=== PATIENT | female | born 1975 | race Caucasian/White ===

== ENCOUNTER 2017-01-12 18:15 | Emergency (ER) | payer MEDICAID ==
[~2017-01-12] VITALS: Ht 157.5 cm; Wt 62.0 kg
[2017-01-12 18:26] VITALS: Ht 157.5 cm; Wt 62.0 kg
[2017-01-12] MEDS ORDERED: KETOROLAC 60 MG INJ IM STA (20:29)
[2017-01-12] MEDS ORDERED: DIAZEPAM 5 MG TAB PO STA (20:29)
--- NOTE | 2017-01-12 21:40 | RADRPT ---
PROCEDURE: XR Left Shoulder CLINICAL INDICATION: Pain TECHNIQUE: AP internal and external rotation views and a Y-view were submitted. COMPARISON: None FINDINGS: Osseous structures: appear well mineralized and intact with no fracture or destructive process iden tified. Joint spaces: The glenohumeral joint appears unremarkable. The left AC joint appears unremarkable. Soft tissues: appear unremarkable. IMPRESSION: Unremarkable left shoulder. Physician Clyde Date Time Electronically viewed and signed by Eleno Rangel Physician on 01/12/2017 21:40 /
--- NOTE | 2017-01-12 21:41 | RADRPT ---
PROCEDURE: XR Cervical Spine. CLINICAL INDICATION: Neck pain TECHNIQUE: Three views of the cervical spine were performed. The images were reviewed on a PACS [employer]. COMPARISON: None. FINDINGS: There is straightening of the normal cervical lordosis. There is no acute fracture or dislocation. The vertebral body heights and disc spaces are preserved. The prevertebral soft tissues are normal. IMPRESSION: 1. No acute fracture or traumatic subluxation. 2. Straightening of the normal cervical lordosis. RPTAT: HFN .Gila Kumar MD, Date Time Electronically viewed and signed by .Gila Kumar MD, MD on 01/12/2017 21:41 .N/
[2017-01-12] MEDS ORDERED: CYCL-319 PO (21:44)
[2017-01-12] MEDS ORDERED: NAPR-260 PO (21:44)
[2017-01-12 22:05] VITALS: BP 127/73; PULSE 75; RESP 18
--- NOTE | 2017-01-12 22:07 | ERD ---
ER Documentation Chief Complaint Date/Time DATE: 01/12/17 TIME: 22:05 Chief Complaint pt bib self with c/o shoulder and neck pain since Monday HPI This is a 41-year-old female presenting to the emergency department complaining of posterior neck pain that radiates down her left shoulder since Monday. Patient states that it is achy, rates it moderate to severe. She admits to having restricted range of motion. She denies any chest pain or shortness of breath. She denies any trauma. She states that she has not taken any medications ROS All systems reviewed and are negative except as per history of present illness. Medications Home Meds Active Scripts Cyclobenzaprine Hcl* (Cyclobenzaprine Hcl*) 10 Mg Tablet, 10 MG PO TID, #30 TAB Prov:PAUL LIU PA-C 01/12/17 Naproxen* (Naprosyn*) 500 Mg Tablet, 500 MG PO BID Y for PAIN AND/OR INFLAMMATION, #30 TAB Prov:PAUL LIU PA-C 01/12/17 Allergies Allergies: Coded Allergies: No Known Allergy (Unverified , 01/12/17) PMhx/Soc Medical and Surgical Hx: pt denies Medical Hx, pt denies Surgical Hx Hx Alcohol Use: No Hx Substance Use: No Hx Tobacco Use: No Smoking Status: Never smoker Physical Exam Vitals Vital Signs Date Time Temp Pulse Resp B/P Pulse Ox O2 Delivery O2 Flow Rate FiO2 01/12/17 18:26 98.3 104 18 125/80 100 Physical Exam GENERAL: WD/WN, in no apparent distress, non-toxic appearing HENT: NC/AT EYES: Conjunctiva normal NECK: Supple Tender palpation on the cervical spine, tender palpation in the left trapezius PULM: Normal labored breathing CV: Good capillary refill GI: Non-distended, no guarding BACK: no deformities noted, normal spinal curvature, NTTP EXT: No clubbing, cyanosis, or edema NEURO: Moves on all fours, sensation intact, normal gait SKIN: intact PSYCH: Normal mood Results 24 hrs Current Medications Medications (Trade) Dose Ordered Sig/Emilie Route PRN Reason Start Time Stop Time Status Last Admin Dose Admin Ketorolac Tromethamine (Toradol) 60 mg ONCE STAT IM 01/12/17 20:29 01/12/17 20:31 DC 01/12/17 20:47 Diazepam (Valium) 10 mg ONCE STAT PO 01/12/17 20:29 01/12/17 20:31 DC 01/12/17 20:36 Procedures/MDM This is a 41-year-old female presenting with atraumatic neck pain and left shoulder pain since Monday likely due to a strain and muscle spasm. I will low suspicion for any fracture, dislocation, subluxation. Low suspicion for ACS. Patient appears well and stable to be discharged home to follow-up with primary care physician and physical therapy. In the ED patient was given Toradol and Valium. She is given prescription for Flexeril and naproxen. X-ray of the cervical spine was done and showed postural, no fracture. Left shoulder was showing no fracture dislocation. Patient understands return precautions Departure Diagnosis: Primary Impression: Shoulder pain Additional Impression: Neck pain Condition: Stable Patient Instructions: Shoulder Problems, Neck Pain, No Trauma, Shoulder Pain ( Uncertain Cause) Referrals: DOCTOR,NOT ON STAFF Additional Instructions: Visite a boykin mdico maana para un EXAMEN.Regrese a estas instalaciones si no se mejora anupam esperbamos o anupam le dijimos. Langdon toda la medicina tim y anupam se le indic. Regrese a estas instalaciones si no se mejora anupam esperbamos o anupam le dijimos. La medicina que se le recet puede causarle sueo.NO DEBE MANEJAR NI OPERAR MAQUINARIAS PELIGROSAS mientras esta tomando esta medicina! PAUL LIU PA-C Jan 12, 2017 22:07
== END 2017-01-12 22:05 | disposition home or self-care (01) ==
LOC: FTE 18:15
DX: M54.2 Cervicalgia (principal); M25.512 Pain in left shoulder
CPT/HCPCS: 72040; 73030; 96372; J1885; Z7502; Z7610

== ENCOUNTER 2017-01-18 17:49 | Observation (INO) | payer MEDICAID ==
[~2017-01-18] VITALS: Ht 157.5 cm; Wt 65.0 kg
[~2017-01-18 17:49] MED LIST: CYCL-319 PO; NAPR-260 PO
[2017-01-18] MEDS ORDERED: KETOROLAC 30 MG INJ IM STA (18:50)
[2017-01-18] MEDS ORDERED: DIAZEPAM 5 MG TAB PO ONE (19:00)
[2017-01-18 21:40] LABS: BASOPHILS % 0.2 % (0.0-2.0); EOSINOPHILS % 0.2 % (0.0-7.0); HEMATOCRIT 35.2 % (37.0-47.0); HEMOGLOBIN 11.3 g/dl (12.0-16.0); LYMPHOCYTES # 1.5 10^3/ul (0.8-2.9); LYMPHOCYTES % 12.5 % (15.0-51.0); MEAN CORPUSCULAR HEMOGLOBIN 26.3 pg (29.0-33.0); MEAN CORPUSCULAR HGB CONC 32.1 g/dl (32.0-37.0); MEAN CORPUSCULAR VOLUME 82.1 fl (82.0-101.0); MEAN PLATELET VOLUME 10.1 fl (7.4-10.4); MONOCYTE # 0.5 10^3/ul (0.3-0.9); MONOCYTES % 4.1 % (0.0-11.0); NEUTROPHIL # 10.1 10^3/ul (1.6-7.5); NEUTROPHILS % 82.6 % (39.0-77.0); PLATELET COUNT 381 10^3/UL (140-415); RED BLOOD COUNT 4.29 10^6/ul (4.20-5.40); RED CELL DISTRIBUTION WIDTH 13.2 % (11.5-14.5); WHITE BLOOD COUNT 12.2 10^3/ul (4.8-10.8)
[2017-01-18 22:14] LABS: C-REACTIVE PROTEIN 8.5 mg/dl (0.0-0.9); CREATININE 0.72 mg/dl (0.44-1.00); POTASSIUM 4.5 mmol/L (3.5-5.1)
--- NOTE | 2017-01-18 22:20 | ERD ---
ER Documentation Chief Complaint Date/Time DATE: 01/18/17 TIME: 22:15 Chief Complaint SHOULDER PAIN, NO INJURY, ONSET 1 WEEK (CARMEN CHAVEZ NP) HPI 0Thiramesh is a 41-year-old female presenting to emergency department with left- sided posterior neck pain radiating down to left shoulder 10 days. Patient was seen here on 01/12/2019 with same symptoms. At that time an x-ray cervical spine x-ray shoulder were done that showed no acute fracture or dislocation. Patient was given medication at that time it was told to follow-up with primary care provider for reassessment. Patient states she continues to have pain and limited range of motion to left shoulder. Patient has been taking medications prescribed to her at home without relief of symptoms. Patient rating pain 10/ 10 to left shoulder that radiates from left posterior neck. No fevers or chills. No fall or injury. (CARMEN CHAVEZ NP) ROS All systems reviewed and are negative except as per history of present illness. (CARMEN CHAVEZ NP) Medications Home Meds Active Scripts Cyclobenzaprine Hcl* (Cyclobenzaprine Hcl*) 10 Mg Tablet, 10 MG PO TID, #30 TAB Prov:PAUL LIU PA-C 01/12/17 Naproxen* (Naprosyn*) 500 Mg Tablet, 500 MG PO BID Y for PAIN AND/OR INFLAMMATION, #30 TAB Prov:PAUL LIU PA-C 01/12/17 Allergies Allergies: Coded Allergies: No Known Allergy (Unverified , 01/18/17) PMhx/Soc Medical and Surgical Hx: pt denies Medical Hx, pt denies Surgical Hx Hx Alcohol Use: No Hx Substance Use: No Hx Tobacco Use: No Smoking Status: Never smoker (CARMEN CHAVEZ NP) Physical Exam Vitals Vital Signs Date Time Temp Pulse Resp B/P Pulse Ox O2 Delivery O2 Flow Rate FiO2 01/18/17 17:52 98.8 114 17 122/76 99 (SANTIAGO FORREST DO) Physical Exam Const: No acute distress, alert Head: Atraumatic Eyes: Normal Conjunctiva ENT: Normal External Ears, Nose and Mouth. Neck: Full range of motion..~ No meningismus. Resp: Clear to auscultation bilaterally Cardio: Regular rate and rhythm, no murmurs Abd: Soft, non tender, non distended. Normal bowel sounds Skin: No petechiae or rashes Back: No midline or flank tenderness Ext: No swelling. Limited range of motion to left shoulder. No extension or flexion. Neur: Awake and alert Psych: Normal Mood and Affect (SCOTT,CARMEN Davidson NP) Result Diagram: 01/18/17 2100 01/18/17 2100 Results 24 hrs Laboratory Tests Test 01/18/17 21:00 White Blood Count 12.210^3/ul Red Blood Count 4.2910^6/ul Hemoglobin 11.3g/dl Hematocrit 35.2% Mean Corpuscular Volume 82.1fl Mean Corpuscular Hemoglobin 26.3pg Mean Corpuscular Hemoglobin Concent 32.1g/dl Red Cell Distribution Width 13.2% Platelet Count 29131^3/UL Mean Platelet Volume 10.1fl Neutrophils % 82.6% Lymphocytes % 12.5% Monocytes % 4.1% Eosinophils % 0.2% Basophils % 0.2% Nucleated Red Blood Cells % 0.0/100WBC Neutrophils # 10.110^3/ul Lymphocytes # 1.510^3/ul Monocytes # 0.510^3/ul Eosinophils # 0.010^3/ul Basophils # 0.010^3/ul Nucleated Red Blood Cells # 0.010^3/ul Erythrocyte Sedimentation Rate 86mm/Hr Sodium Level 139mmol/L Potassium Level 4.5mmol/L Chloride Level 103mmol/L Carbon Dioxide Level 26mmol/L Anion Gap 15 Blood Urea Nitrogen 20mg/dl Creatinine 0.72mg/dl Glucose Level 110mg/dl Calcium Level 10.0mg/dl C-Reactive Protein 8.5mg/dl Current Medications Medications (Trade) Dose Ordered Sig/Emilie Route PRN Reason Start Time Stop Time Status Last Admin Dose Admin Ketorolac Tromethamine (Toradol) 30 mg ONCE STAT IM 01/18/17 18:50 01/18/17 18:51 DC 01/18/17 19:10 Diazepam 10 mg 10 mg ONCE ONCE PO 01/18/17 19:00 01/18/17 19:01 DC 01/18/17 19:09 Sodium Chloride (NS) 100 ml @ [facility]-MED ONCE .ROUTE 01/19/17 00:37 01/19/17 00:38 DC 01/19/17 01:12 Iohexol (Omnipaque 300mg/ ml) 150 ml STK-MED ONCE .ROUTE 01/19/17 00:37 01/19/17 00:38 DC 01/19/17 01:12 (SANTIAGO FORREST DO) Procedures/MDM MDM: 41 year old female presenting to ER with Left-sided posterior neck pain radiating down to left shoulder. Patient has limited range of motion to left shoulder and is unable to extend or rotate left shoulder. Patient given Toradol and lorazepam while in the ED. Since x-rays were already done about 1 week ago that showed no acute fracture, Labs are ordered to rule out septic joint. CBC shows elevated white blood cell of 12.2. CRP is elevated at 8.5. ESR 86. Consulted Dr. Forrest regarding this patient and we agree that patient should have synovial fluid aspiration. Patient signed out to Baylee Woodard NP pending synovial fluid aspiration and possible admission. (CARMEN CHAVEZ NP) Patient was seen and examined by me. The patient states that she has had pain in her left lateral lower neck/ trapezius area for the past week. She says the most pain is there she is also having pain in her clavicle located at the clavicular sternal notch and pain in her left anterior chest. She says she has very minimal pain in the shoulder. She says that she has no documented fevers. The patient was seen in this ER earlier this week. She says the pain is dull and constant and worse when she moves her neck left or right but no neck stiffness no photophobia and if she shrugs her shoulder it causes pain. No pain that radiates down the arm. Shoulder exam: There is tenderness to the left trapezius left lateral cervical paraspinal musculature is tender to palpation and there is tenderness at the sternal clavicular joint. She has good range of motion of the shoulder joint no signs of a septic shoulder whatsoever. Patient is having some elevated inflammatory markers of uncertain etiology. Patient's had a slight cough therefore chest x-ray is ordered but is currently pending. We will admit for further workup of these inflammatory marker elevations differential could be myositis some type of infectious process in her sternoclavicular joint which may need to be aspirated under fluoroscopy. We will admit to the hospital PROCEDURE: CHEST - 1 VIEW CLINICAL INDICATION: 41-year-old female with chest pain. TECHNIQUE: A single frontal AP portable view of the chest was performed. The images were reviewed on a PACS workstation. COMPARISON: None. FINDINGS: The cardiomediastinal silhouette has a normal appearance. There is mild elevation of the left hemidiaphragm. There is minimal left basilar subsegmental atelectasis. There is no evidence for an infiltrate. There is no evidence for congestive heart failure. There is no evidence for pneumothorax. Surgical clips are seen within the right upper quadrant from prior cholecystectomy. The osseous structures are intact. IMPRESSION: 1. Mild elevation left hemidiaphragm with minimal left basilar subsegmental atelectasis. 2. Status post cholecystectomy. .Tyrone Woody MD, MD Date Time Electronically viewed and signed by .Tyrone Woody MD, MD on 01/19/2017 02:40 .M/ CC: SANTIAGO FORREST DO (SANTIAGO FORREST DO) Departure Diagnosis: Primary Impression: Neck pain Additional Impressions: Musculoskeletal pain Inflammation Condition: Stable CARMEN CHAVEZ NP Jan 18, 2017 22:20 SANTIAGO FORREST DO Jan 19, 2017 02:43
[2017-01-19] MEDS ORDERED: SOD CHLORIDE 0.9% 100 ML ONE (00:37)
[2017-01-19] MEDS ORDERED: IOHEXOL 300MG/ML 150 ML BTL ONE (00:37)
--- NOTE | 2017-01-19 01:17 | RADRPT ---
PROCEDURE: CT CERVICAL SPINE WITHOUT CONTRAST CLINICAL INDICATION: 41-year-old female with neck pain. TECHNIQUE: The study was performed utilizing a GE Fin[employer]peed VCT 64-slice CT scanner. Direct axia l sections were obtained through the cervical spine. Coronal and sagittal re-formations were obtain ed. One or more of the following dose reduction techniques were utilized: automated exposure control , adjustment of the mA and/or kV according to patient's size or use of iterative reconstruction tech nique. The images were viewed on a PACS workstation. CTD/vol = 22.3 mGy; Total Exam DLP = 548.0 mGy -cm. COMPARISON: None. FINDINGS: The patient's head/neck is mildly tilted to the right. There is a normal cervical lordosis. The cerv ical vertebral bodies have normal heights and anatomic alignment. There is no evidence for acute cer vical spine fracture or subluxation. There is an anterior osteophyte at C7-T1. There is no significa nt central or foraminal stenosis. IMPRESSION: 1. No CT evidence for cervical spine fracture. 2. Small anterior osteophyte C7-T1. .Tyrone Woody MD, Date Time Electronically viewed and signed by .Tyrone Woody MD, on 01/19/2017 01:17 .Leah/
--- NOTE | 2017-01-19 01:34 | RADRPT ---
PROCEDURE: CT scan of the neck with contrast. CLINICAL INDICATION: Neck pain. TECHNIQUE: A CT scan of the neck was performed with intravenous contrast. Coronal and sagittal re formats were generated. 100 cc of Omnipaque 300 were administered during examination without complic ation. CTDIvol: 8.88 mGy. DLP: 243.09 mGy-cm. One or more of the following dose reduction techniques were used: - Automated exposure control. - Adjustment of the mA and/or kV according to patient size. - Use of iterative reconstruction technique. COMPARISON: Noncontrast cervical spine CT dated 01/19/2017. FINDINGS: The aerodigestive tract is unremarkable. No mass is identified in the suprahyoid and infrahyoid [facility] [place] of the neck. There is no cervical lymphadenopathy. The major salivary glands are unremarkable. No suspicious thyroid lesion is identified. The carotid arteries are unremarkable. The visualized intracranial structures are unremarkable. There is minimal mucosal thickening in the right maxillary sinus. The visualized mastoid air cells are clear. The lung apices are also clear. IMPRESSION: 1. Normal CT of the neck. RPTAT: HTAR .Dayton Solorzano MD, Date Time Electronically viewed and signed by .Dayton Solorzano MD, on 01/19/2017 01:34 .R/
--- NOTE | 2017-01-19 02:40 | RADRPT ---
PROCEDURE: CHEST - 1 VIEW CLINICAL INDICATION: 41-year-old female with chest pain. TECHNIQUE: A single frontal AP portable view of the chest was performed. The images were reviewed on a PACS workstation. COMPARISON: None. FINDINGS: The cardiomediastinal silhouette has a normal appearance. There is mild elevation of the left hemidi aphragm. There is minimal left basilar subsegmental atelectasis. There is no evidence for an infiltr ate. There is no evidence for congestive heart failure. There is no evidence for pneumothorax. Surg ical clips are seen within the right upper quadrant from prior cholecystectomy. The osseous structur es are intact. IMPRESSION: 1. Mild elevation left hemidiaphragm with minimal left basilar subsegmental atelectasis. 2. Status post cholecystectomy. .Tyrone Woody MD, Date Time Electronically viewed and signed by .Tyrone Woody MD, on 01/19/2017 02:40 .M/
[2017-01-19] MEDS ORDERED: SOD CHLORIDE 0.9% 1,000 ML IV SCH (02:47)
[2017-01-19] MEDS ORDERED: HYDROmorphONE 1 MG/ML SYG IV STA (02:48)
[2017-01-19] MEDS ORDERED: ONDANSETRON 4 MG INJ IV STA (02:48)
[2017-01-19] MEDS ORDERED: ACETAMINOPHEN 325 MG TAB PO PRN ×2 (03:00→09:30)
[2017-01-19] MEDS ORDERED: ONDANSETRON 4 MG INJ IV PRN ×2 (03:00→09:30)
[2017-01-19 06:30] VITALS: PULSE 88; TEMP 98.1
[2017-01-19 08:06] VITALS: BP 107/69; RESP 18
[2017-01-19 09:00] VITALS: Ht 157.5 cm; Wt 65.0 kg
[2017-01-19] MEDS ORDERED: HYDROmorphONE 1 MG/ML SYG IV PRN (09:30)
[2017-01-19] MEDS ORDERED: morphine 2 MG INJ IV PRN (09:30)
[2017-01-19] MEDS ORDERED: NACL 0.9% 3 ML SYG IV SCH (09:30)
[2017-01-19] MEDS: KETOROLAC 30 MG INJ IV PRN ×2 (11:47→17:54)
[2017-01-19] MEDS: BACLOFEN 10 MG TAB PO SCH ×3 (11:47→19:55)
[2017-01-19] MEDS: DEXAMETHASONE 4 MG/ML 1 ML INJ IV SCH ×2 (11:48→17:53)
--- NOTE | 2017-01-19 12:24 | RADRPT ---
PROCEDURE: XR Left Shoulder. CLINICAL INDICATION: Left shoulder pain TECHNIQUE: 3 views of the left shoulder are available for review. COMPARISON: Radiographs of the left shoulder January 12, 2017 FINDINGS: There is no acute fracture. Alignment is normal. Joint spaces are preserved. Soft tissues are grossly unremarkable. IMPRESSION: 1. No radiographic evidence of acute osseous abnormality of the left shoulder. RPTAT: UU .Cesar Hillman MD, MD Date Time Electronically viewed and signed by .Cesar Hillman MD, on 01/19/2017 12:23 .K/
[2017-01-19 14:00] VITALS: BP 96/58; RESP 18
[2017-01-19 14:07] LABS: ADD UMIC YES; UR ASCORBIC ACID NEGATIVE (NEGATIVE); UR BACTERIA MODERATE /HPF (NONE SEEN); UR BILIRUBIN (Dip) NEGATIVE (NEGATIVE); UR BLOOD (Dip) 2+ mg/dL (NEGATIVE); UR CLARITY TURBID (CLEAR); UR COLOR YELLOW (YELLOW); UR GLUCOSE (Dip) NEGATIVE (NEGATIVE); UR KETONES (Dip) NEGATIVE (NEGATIVE); UR LEUKOCYTE ESTERASE (Dip) 3+ Leu/ul (NEGATIVE); UR MUCUS FEW /HPF (NONE SEEN); UR NITRITE (Dip) POSITIVE (NEGATIVE); UR RBC 34 /HPF (0-5); UR SPECIFIC GRAVITY (Dip) 1.023 (1.003-1.030); UR TOTAL PROTEIN (Dip) 1+ mg/dl (NEGATIVE); UR UROBILINOGEN (Dip) 2+ mg/dL (NEGATIVE)
[2017-01-19] MEDS: CEFTRIAXONE 1 GM/50 ML (PMX) 50 ML IVPB SCH (15:17)
[2017-01-19 20:11] VITALS: BP 119/73; RESP 18
--- NOTE | 2017-01-19 22:03 | CONS ---
DATE OF ADMISSION: 01/19/2017 DATE OF CONSULTATION: 01/19/2017 RHEUMATOLOGY CONSULT REFERRING PHYSICIAN: Xi Campbell MD REASON FOR CONSULTATION: Muscle pain. HISTORY OF PRESENT ILLNESS: Patient is a 41-year-old, female, with an almost 2-week history of left-sided neck pain, kind of like posterior head in the occipital region that shoots down to the clavicular region, down to the shoulder, so that the patient has very limited range of motion of her shoulder and pain in her neck. She denies any precipitating trauma or a fall. She denies any heavy lifting or straining or pushing out of the ordinary. Patient does work in a [employer], but she says she does not do much heavy lifting. She has not lifted her children. She did have an upper respiratory infection and was coughing a lot, and she says that the pain came on after her coughing that was protracted for a long period of time. She denies any rashes, nausea, vomiting, fever, chills, chest pain, shortness of breath, diarrhea, constipation, bright red blood per rectum, melena. She did come to the emergency room before and was given some pain medications. That was on January 12 after she had an x-ray of her cervical spine and shoulder that were negative for any acute pathology. However, she says that the pain medication only made her sleepy. It did not help with the pain. She is rating the pain 10/10 in the ER. Of note, patient was noted to have a urinary tract infection in the ER. PAST MEDICAL HISTORY: None. PAST SURGICAL HISTORY: Cholecystectomy and . SOCIAL HISTORY: No smoking, no drinking, no drugs. ALLERGIES: NO KNOWN DRUG ALLERGIES. MEDICATIONS: 1. Ceftriaxone. 2. Decadron 4 mg every 6 hours IV. 3. Baclofen 10 mg p.o. t.i.d. 4. Zofran p.r.n. 5. Tylenol p.r.n. 6. Morphine p.r.n. 7. Dilaudid p.r.n. 8. Toradol 30 mg IV q.6h p.r.n. PHYSICAL EXAMINATION: VITAL SIGNS: She has been afebrile since admission, currently 97.4, pulse 94, BP 107/69, respirations 18, satting 100 percent on room air. GENERAL APPEARANCE: Alert and oriented, pleasant female with some pain and neck rigidity. HEENT: Pain with range of motion of the neck. However, range of motion is intact. Tenderness to palpation in the posterior occipital area of the left occipital area, shooting down to tenderness of her upper back. HEART: S1, S2. Regular rate and rhythm. LUNGS: Clear to auscultation bilaterally. ABDOMEN: Soft, nontender, nondistended. SKIN: No petechiae, no rashes. BACK: Upper back tenderness to palpation. No midline or flank tenderness. EXTREMITIES: No swelling. Left shoulder, with limited range of motion, very minimal abduction, maybe 30 percent, and internal/external rotation severe pain. NEUROLOGIC: Awake and alert. Normal strength on the right side. Cannot assess upper extremity strength in the left secondary to pain. LABORATORY: White count 12.2, hemoglobin 11.3, hematocrit 35.2, platelet count 381. ESR as noted 86. Chemistry: Sodium 139, potassium 4.5, chloride 103, bicarb 26, BUN 20, creatinine 0.72, glucose 110, calcium 10. C-reactive protein 8.5. Chest x-ray negative. As stated above, shoulder x-ray, CT of the cervical spine and CT of the neck show no pathology. ASSESSMENT AND PLAN: A 41-year-old female, who is presenting with a rather sudden onset, left occiput pain, shooting down to the left shoulder, with limited range of motion in the left shoulder and also a urinary tract infection. 1. Muscle pain in the neck and around the shoulder of unclear etiology, not really consistent with any kind of systemic autoimmune disease since it is located to just one area and very unlikely to be polymyositis or any other kind of autoimmune condition. More concerning is possibly an infectious etiology, given her history of upper respiratory infection and pretty bad urinary tract infection and both elevated ESR and CRP. I agree with the antibiotics, the Decadron, the Toradol, the muscle relaxant, and the baclofen. I would continue to do that. Maybe consider an MRI of the soft tissue of the neck or an MRI of the shoulder to get a better idea in the soft tissue, get a better view of what is going on. Also, I would check a CK, creatine kinase just to make sure that there is no severe muscle issue going on there, and you can also check an SEJAL at this time. Other laboratory workup I do not think is going to yield much, given her presentation. 2. Urinary tract infection. Agree with intravenous antibiotics at this time. 3. I would like to thank Dr. Campbell for having me participate in this patient's care. Please call with any further questions or concerns. Dictated By: Gianluca Menendez MD /rhina/donald /Document#: [id number]
[2017-01-20] MEDS: DEXAMETHASONE 4 MG/ML 1 ML INJ IV SCH ×4 (00:50→18:10)
[2017-01-20 02:49] VITALS: BP 108/63; RESP 18
[2017-01-20 06:25] LABS: HEMATOCRIT 32.6 % (37.0-47.0); HEMOGLOBIN 10.3 g/dl (12.0-16.0); LYMPHOCYTES % 9.4 % (15.0-51.0); MEAN CORPUSCULAR HGB CONC 31.6 g/dl (32.0-37.0); MEAN CORPUSCULAR VOLUME 82.3 fl (82.0-101.0); MEAN PLATELET VOLUME 10.5 fl (7.4-10.4); MONOCYTE # 0.2 10^3/ul (0.3-0.9); MONOCYTES % 1.7 % (0.0-11.0); NEUTROPHIL # 9.2 10^3/ul (1.6-7.5); NEUTROPHILS % 88.3 % (39.0-77.0); PLATELET COUNT 383 10^3/UL (140-415); RED BLOOD COUNT 3.96 10^6/ul (4.20-5.40); RED CELL DISTRIBUTION WIDTH 13.1 % (11.5-14.5); WHITE BLOOD COUNT 10.4 10^3/ul (4.8-10.8)
[2017-01-20 06:51] LABS: ALBUMIN 3.9 g/dl (3.3-4.9); ALBUMIN/GLOBULIN RATIO 0.86; CALCIUM 10.2 mg/dl (8.4-10.2); CREATININE 0.63 mg/dl (0.44-1.00); MAGNESIUM 2.2 mg/dl (1.7-2.5); PHOSPHORUS 3.5 mg/dl (2.5-4.9); POTASSIUM 4.6 mmol/L (3.5-5.1); TOTAL PROTEIN 8.4 g/dl (6.1-8.1)
[2017-01-20 07:37] VITALS: BP 113/68; RESP 18
[2017-01-20] MEDS: BACLOFEN 10 MG TAB PO SCH ×3 (08:04→21:35)
[2017-01-20] MEDS: KETOROLAC 30 MG INJ IV PRN ×2 (08:04→18:14)
--- NOTE | 2017-01-20 10:02 | HP ---
Date/Time of Note Date/Time of Note DATE: 01/20/17 TIME: 09:57 Assessment/Plan Lines/Catheters IV Catheter Type (from Nrs): Saline Lock Assessment/Plan Assessment/Plan 1. Left shoulder/neck pain -Unknown etiology -Given elevated ESR and CRP, inflammatory process such as myositis is a consideration -She will be placed on steroid -Pain management -MRI of the left shoulder HPI/ROS Admit Date/Time Admit Date/Time Jan 18, 2017 at 02:48 Hx of Present Illness This is a 41-year-old female with no significant past medical history who presented to the emergency department complaining of left shoulder/neck area pain. Pain started about 10 days ago. It seems like it was of sudden onset and the patient does not know what caused is. She denied lifting heavy objects or any type of strenuous activities. Denied fever, chills, chest pain or shortness of breath. She also denied headache or blurry vision. Patient does seem to somehow radiates to her upper arm. She denied any numbness. Patient is unable to raise her left arm because of pain. When she presented to the ER, lab shows elevated CRP and ESR. Initial imagings were nondiagnostic. PMH/Family/Social Social History Smoking Status: Never smoker Exam/Review of Systems Vital Signs Vitals Vital Signs Date Time Temp Pulse Resp B/P Pulse Ox O2 Delivery O2 Flow Rate FiO2 01/20/17 07:37 97.9 63 18 113/68 98 01/19/17 06:30 Room Air Intake and Output 01/19/17 01/19/17 01/20/17 15:00 23:00 07:00 Intake Total 50 ml 500 ml Output Total 1 ml Balance 50 ml 499 ml Exam Constitutional: other (Patient in distress due to pain) Head: atraumatic, normocephalic Neck: other (Left neck tenderness. Patient unable to turn to the right or to the left completely because of pain. No obvious deformity or swelling erythema noted on the neck or left shoulder area) Respiratory: clear to auscultation, normal air movement Cardiovascular: nl pulses, regular rate and rhythm Gastrointestinal: non-tender, soft Extremities: normal pulses Labs Result Diagram: 01/20/17 0604 01/20/17 0604 Medications Medications Current Medications Ondansetron HCl (Zofran Inj) 4 mg Q6H PRN IV NAUSEA AND/OR VOMITING Last administered on 01/19/17 09:45; Admin Dose 4 MG; Start 01/19/17 at 09:30 Acetaminophen (Tylenol Tab) 650 mg Q6H PRN PO PAIN LEVEL 1-3 OR FEVER; Start at 09:30 Morphine Sulfate (morphine) 4 mg Q4H PRN IV pain; Start 01/19/17 at 09:30 Hydromorphone HCl (Dilaudid) 1 mg Q4H PRN IV pain Last administered on 09:45; Admin Dose 1 MG; Start 01/19/17 at 09:30 Dexamethasone (Decadron) 4 mg Q6 IV Last administered on 01/20/17 05:32; Admin Dose 4 MG; Start 01/19/17 at 12:00 Ketorolac Tromethamine (Toradol) 30 mg Q6H PRN IV PAIN Last administered on 08:04; Admin Dose 30 MG; Start 01/19/17 at 09:30; Stop 01/22/17 at 09:29 Baclofen 10 mg 10 mg TID PO Last administered on 01/20/17 08:04; Admin Dose 10 MG; Start 01/19/17 at 11:00 Ceftriaxone Sodium (Rocephin) 50 ml @ 100 mls/hr Q24H IVPB Last administered on 01/19/17 15:17; Admin Dose 100 MLS/HR; Start 01/19/17 at 14:30 MARLENA RUIZ MD Jan 20, 2017 10:02
[2017-01-20 14:00] VITALS: BP 103/57; RESP 18
[2017-01-20] MEDS: CEFTRIAXONE 1 GM/50 ML (PMX) 50 ML IVPB SCH (14:57)
--- NOTE | 2017-01-20 18:09 | PN ---
Date/Time of Note Date/Time of Note DATE: 01/20/17 TIME: 18:04 Assessment/Plan VTE Prophylaxis VTE Prophylaxis Intervention: SCD's Lines/Catheters IV Catheter Type (from Nrsg): Saline Lock Assessment/Plan Chief Complaint/Hosp Course 1. Left neck and shoulder pain-muscular in nature Continue pain meds and muscle relaxers Total CK is normal Rheumatology consultation appreciated ESR and CRP continue to be elevated Shoulder x-ray is negative MRI of shoulder if pain persists but the pain is muscular in nature with reproduction of the pain during palpation of the neck and trapezius muscles as well as the pectoral muscles on the left side 2. Sepsis secondary to UTI Urine culture shows gram-negative rods, follow-up on specifics Continue Rocephin 3. Normocytic anemia Check iron panel Prophylaxis: SCDs Problems: Subjective 24 Hr Interval Summary Musculoskeletal: bone/joint pain Exam/Review of Systems Vital Signs Vitals Vital Signs Date Time Temp Pulse Resp B/P Pulse Ox O2 Delivery O2 Flow Rate FiO2 01/20/17 14:00 98.7 76 18 103/57 97 01/19/17 06:30 Room Air Intake and Output 01/19/17 01/19/17 01/20/17 15:00 23:00 07:00 Intake Total 50 ml 500 ml Output Total 1 ml Balance 50 ml 499 ml Exam Constitutional: alert, oriented Respiratory: clear to auscultation Cardiovascular: regular rate and rhythm Gastrointestinal: soft, No distended Musculoskeletal: nl extremities to inspection Results Result Diagram: 01/20/17 0604 01/20/17 0604 Results 24 hrs Laboratory Tests Test 01/20/17 06:04 White Blood Count 10.4 Red Blood Count 3.96 L Hemoglobin 10.3 L Hematocrit 32.6 L Mean Corpuscular Volume 82.3 Mean Corpuscular Hemoglobin 26.0 L Mean Corpuscular Hemoglobin Concent 31.6 L Red Cell Distribution Width 13.1 Platelet Count 383 Mean Platelet Volume 10.5 H Neutrophils % 88.3 H Lymphocytes % 9.4 L Monocytes % 1.7 Eosinophils % 0.0 Basophils % 0.0 Nucleated Red Blood Cells % 0.0 Neutrophils # 9.2 H Lymphocytes # 1.0 Monocytes # 0.2 L Eosinophils # 0.0 Basophils # 0.0 Nucleated Red Blood Cells # 0.0 Erythrocyte Sedimentation Rate 122.0 H Sodium Level 143 Potassium Level 4.6 Chloride Level 108 Carbon Dioxide Level 26 Anion Gap 14 Blood Urea Nitrogen 22 H Creatinine 0.63 Glucose Level 161 Hemoglobin A1c 5.4 Calcium Level 10.2 Phosphorus Level 3.5 Magnesium Level 2.2 Total Bilirubin 0.0 L Direct Bilirubin 0.00 Indirect Bilirubin 0.0 Aspartate Amino Transf (AST/SGOT) 41 Alanine Aminotransferase (ALT/SGPT) 51 Alkaline Phosphatase 161 H C-Reactive Protein 7.7 H Total Protein 8.4 H Albumin 3.9 Globulin 4.50 H Albumin/Globulin Ratio 0.86 Medications Medications Current Medications Ondansetron HCl (Zofran Inj) 4 mg Q6H PRN IV NAUSEA AND/OR VOMITING Last administered on 01/19/17 09:45; Admin Dose 4 MG; Start 01/19/17 at 09:30 Acetaminophen (Tylenol Tab) 650 mg Q6H PRN PO PAIN LEVEL 1-3 OR FEVER; Start at 09:30 Morphine Sulfate (morphine) 4 mg Q4H PRN IV pain; Start 01/19/17 at 09:30 Hydromorphone HCl (Dilaudid) 1 mg Q4H PRN IV pain Last administered on 09:45; Admin Dose 1 MG; Start 01/19/17 at 09:30 Dexamethasone (Decadron) 4 mg Q6 IV Last administered on 01/20/17 12:49; Admin Dose 4 MG; Start 01/19/17 at 12:00 Ketorolac Tromethamine (Toradol) 30 mg Q6H PRN IV PAIN Last administered on 08:04; Admin Dose 30 MG; Start 01/19/17 at 09:30; Stop 01/22/17 at 09:29 Baclofen 10 mg 10 mg TID PO Last administered on 01/20/17 12:48; Admin Dose 10 MG; Start 01/19/17 at 11:00 Ceftriaxone Sodium (Rocephin) 50 ml @ 100 mls/hr Q24H IVPB Last administered on 01/20/17 14:57; Admin Dose 100 MLS/HR; Start 01/19/17 at 14:30 SIERRA FRY Jan 20, 2017 18:09
[2017-01-20 20:58] VITALS: BP 108/63; RESP 20
[2017-01-21] MEDS: DEXAMETHASONE 4 MG/ML 1 ML INJ IV SCH ×4 (00:31→18:00)
[2017-01-21 02:00] VITALS: BP 118/64; RESP 18
[2017-01-21 06:21] LABS: BASOPHILS % 0.1 % (0.0-2.0); HEMATOCRIT 31.5 % (37.0-47.0); HEMOGLOBIN 10.2 g/dl (12.0-16.0); LYMPHOCYTES # 1.4 10^3/ul (0.8-2.9); LYMPHOCYTES % 8.3 % (15.0-51.0); MEAN CORPUSCULAR HGB CONC 32.4 g/dl (32.0-37.0); MEAN CORPUSCULAR VOLUME 83.3 fl (82.0-101.0); MEAN PLATELET VOLUME 10.8 fl (7.4-10.4); MONOCYTE # 0.4 10^3/ul (0.3-0.9); MONOCYTES % 2.1 % (0.0-11.0); NEUTROPHIL # 14.9 10^3/ul (1.6-7.5); NEUTROPHILS % 88.7 % (39.0-77.0); PLATELET COUNT 416 10^3/UL (140-415); RED BLOOD COUNT 3.78 10^6/ul (4.20-5.40); RED CELL DISTRIBUTION WIDTH 13.2 % (11.5-14.5); WHITE BLOOD COUNT 16.8 10^3/ul (4.8-10.8)
[2017-01-21 06:52] LABS: CALCIUM 9.8 mg/dl (8.4-10.2); CREATININE 0.62 mg/dl (0.44-1.00); POTASSIUM 4.4 mmol/L (3.5-5.1)
[2017-01-21 06:54] LABS: IRON 29 ug/dl (35-150)
[2017-01-21 07:05] LABS: TOTAL IRON BINDING CAPACITY 332 ug/dl (241-421)
[2017-01-21 07:27] VITALS: BP 121/79; RESP 16
[2017-01-21 08:24] VITALS: BP 120/60; RESP 18
[2017-01-21] MEDS: BACLOFEN 10 MG TAB PO SCH ×2 (08:57→12:40)
[2017-01-21] MEDS: KETOROLAC 30 MG INJ IV PRN (08:58)
--- NOTE | 2017-01-21 10:45 | CONS ---
Date/Time of Note Date/Time of Note DATE: 01/21/17 TIME: 10:39 Consult Date/Type/Reason Admit Date/Time Jan 19, 2017 at 02:48 Initial Consult Date Type of Consultation: Latia Subjective Feels significantly better in terms of Lt neck shoulder and upper back pain and can range her shoulder well now. Objective Vital Signs Date Time Temp Pulse Resp B/P Pulse Ox O2 Delivery O2 Flow Rate FiO2 01/21/17 08:24 98.0 65 18 120/60 98 01/19/17 06:30 Room Air Intake and Output 01/20/17 01/20/17 01/21/17 15:00 23:00 07:00 Intake Total 1750 ml Balance 1750 ml Exam GENERAL APPEARANCE: Alert and oriented, pleasant female. HEENT: Pain with range of motion of the neck. However, range of motion is intact. Tenderness to palpation in the posterior occipital area of the left occipital area, shooting down to tenderness of her upper back. HEART: S1, S2. Regular rate and rhythm. LUNGS: Clear to auscultation bilaterally. ABDOMEN: Soft, nontender, nondistended. SKIN: No petechiae, no rashes. BACK: Upper back mild tenderness to palpation. No midline or flank tenderness. EXTREMITIES: No swelling. Left shoulder, with FROMI Results/Medications Result Diagram: 01/21/1718 01/21/17 0518 Results 24 hrs Laboratory Tests Test 01/21/17 05:18 White Blood Count 16.8 #H Red Blood Count 3.78 L Hemoglobin 10.2 L Hematocrit 31.5 L Mean Corpuscular Volume 83.3 Mean Corpuscular Hemoglobin 27.0 L Mean Corpuscular Hemoglobin Concent 32.4 Red Cell Distribution Width 13.2 Platelet Count 416 H Mean Platelet Volume 10.8 H Neutrophils % 88.7 H Lymphocytes % 8.3 L Monocytes % 2.1 Eosinophils % 0.0 Basophils % 0.1 Nucleated Red Blood Cells % 0.0 Neutrophils # 14.9 H Lymphocytes # 1.4 Monocytes # 0.4 Eosinophils # 0.0 Basophils # 0.0 Nucleated Red Blood Cells # 0.0 Sodium Level 140 Potassium Level 4.4 Chloride Level 108 Carbon Dioxide Level 24 Anion Gap 12 Blood Urea Nitrogen 20 Creatinine 0.62 Glucose Level 147 Calcium Level 9.8 Iron Level 29 L Total Iron Binding Capacity 332 Percent Iron Saturation 9 L Medications Current Medications Ondansetron HCl (Zofran Inj) 4 mg Q6H PRN IV NAUSEA AND/OR VOMITING Last administered on 01/19/17 09:45; Admin Dose 4 MG; Start 01/19/17 at 09:30 Acetaminophen (Tylenol Tab) 650 mg Q6H PRN PO PAIN LEVEL 1-3 OR FEVER; Start at 09:30 Morphine Sulfate (morphine) 4 mg Q4H PRN IV pain; Start 01/19/17 at 09:30 Hydromorphone HCl (Dilaudid) 1 mg Q4H PRN IV pain Last administered on 09:45; Admin Dose 1 MG; Start 01/19/17 at 09:30 Dexamethasone (Decadron) 4 mg Q6 IV Last administered on 01/21/17 06:01; Admin Dose 4 MG; Start 01/19/17 at 12:00 Ketorolac Tromethamine (Toradol) 30 mg Q6H PRN IV PAIN Last administered on 08:58; Admin Dose 30 MG; Start 01/19/17 at 09:30; Stop 01/22/17 at 09:29 Baclofen 10 mg 10 mg TID PO Last administered on 01/21/17 08:57; Admin Dose 10 MG; Start 01/19/17 at 11:00 Ceftriaxone Sodium (Rocephin) 50 ml @ 100 mls/hr Q24H IVPB Last administered on 01/20/17 14:57; Admin Dose 100 MLS/HR; Start 01/19/17 at 14:30 Assessment/Plan Chief Complaint/Hosp Course 41 yo Female with UTI and Left sided neck shoulder and upper back pain- likely secondary to muscle. Myalgias now improved. UTI is being treated with antibiotics and elevated ESR and CRP are likely secondary to active infection. Problems: PARVEEN FLOWERS MD Jan 21, 2017 10:45
[2017-01-21] MEDS: CEFTRIAXONE 1 GM/50 ML (PMX) 50 ML IVPB SCH (14:07)
[2017-01-21 14:13] VITALS: BP 122/70; RESP 18
[2017-01-21] MEDS ORDERED: CIPR500T4 PO (15:08)
--- NOTE | 2017-01-21 15:09 | PDOCDIS ---
Discharge Instructions CONDITION Patient Condition: Good HOME CARE INSTRUCTIONS: Diet Instructions: Regular ACTIVITY: Activity Restrictions: No Restrictions FOLLOW UP/APPOINTMENTS Follow-up Plan FOLLOW UP WITH YOUR PRIMARY CARE PHYSICIAN IN 1-2 WEEKS SIERRA FRY Jan 21, 2017 15:09
--- NOTE | 2017-01-21 15:40 | DS ---
Date/Time of Note Date/Time of Note DATE: 01/21/17 TIME: 15:34 Discharge Summary Admission/Discharge Info Admit Date/Time Jan 19, 2017 at 02:48 Discharge Date/Time January 21, 2017 Discharge Diagnosis 1. Left neck and shoulder pain-muscular in nature-improved Continue NSAIDs and muscle relaxers Total CK is normal Rheumatology consultation appreciated Shoulder x-ray is negative 2. Sepsis secondary to UTI-improved Urine culture shows E. coli, DC with Cipro p.o. 3. Anemia of chronic disease-stable Hospital Course Patient is a 41-year-old female with no significant past medical history who presented to the emergency department complaining of left shoulder/neck area pain. ESR and CRP were elevated and patient was seen by rheumatology. Patient was started on steroids as well as muscle relaxers and NSAIDs. X-ray of left shoulder was negative as well as CT of the neck and cervical spine. Patient was found to have UTI secondary to E. coli and patient did receive antibiotics while in-house. Patient's pain was felt to be muscular in nature mostly around the neck and trapezius, pain was reproducible with palpation. Pain did improve and on the day of discharge patient felt stable for returning to home. Patient was told to continue her home muscle relaxers and NSAIDs. The day of discharge patient vitals, labs and physical exam are stable she had no further acute complaints and questions were answered. Leukocytosis on day of discharge is secondary to steroids. Home Meds Active Scripts Ciprofloxacin Hcl* (Ciprofloxacin Hcl*) 500 Mg Tablet, 500 MG PO BID for 5 Days , #10 TAB Prov:SIERRA FRY 01/21/17 Cyclobenzaprine Hcl* (Cyclobenzaprine Hcl*) 10 Mg Tablet, 10 MG PO TID, #30 TAB Prov:PAUL LIU PA-C 01/12/17 Naproxen* (Naprosyn*) 500 Mg Tablet, 500 MG PO BID Y for PAIN AND/OR INFLAMMATION, #30 TAB Prov:PAUL LIU PA-C 01/12/17 Follow-up Plan FOLLOW UP WITH YOUR PRIMARY CARE PHYSICIAN IN 1-2 WEEKS Primary Care Provider Care Physician No Primary Time spent on discharge: > 30 minutes SIERRA FRY Jan 21, 2017 15:40
[2017-01-21] MEDS ORDERED: NAPR-260 PO (16:14)
[2017-01-21] MEDS ORDERED: CYCL-319 PO (16:14)
[2017-01-23 12:31] LABS: ANA SCREEN POSITIVE (NEGATIVE)
[2017-01-23 15:27] LABS: ANA TITER 1:40 titer
== END 2017-01-21 18:25 | disposition home or self-care (01) ==
LOC: FTE 17:49 → MS2 01-19 02:48
PROVIDERS: ADMIT Internal Medicine; ATTEND Internal Medicine
DX: M54.2 Cervicalgia (principal); M25.512 Pain in left shoulder; N39.0 Urinary tract infection, site not specified; D63.8 Anemia in other chronic diseases classified elsewhere; Z90.49 Acquired absence of other specified parts of digestive tract
CPT/HCPCS: 70491; 71010; 72125; 73030; 80048; 80053; 81001; 82550; 82553; 83036; 83540; 83735; 84100; 85025; 85651; 86038; 86140; 87086; 93005; 96361; 96372; 96374; 96375; 96376; J0696; J1100; J1170; J1885; J2405; J7030; Q9967; Z7500; Z7502; Z7610; G0378